=== PATIENT | female | born 1990 | race Caucasian/White ===

== ENCOUNTER 2020-07-29 19:56 | Inpatient (IN) | payer OTHER ==
[~2020-07-29] VITALS: Ht 157.5 cm; Wt 151.0 kg
[2020-07-29 19:59] VITALS: BP 119/71
[2020-07-29] MEDS ORDERED: LEVO-T75 MCG PO (20:31)
[2020-07-29 20:56] LABS: ABSOLUTE NEUTROPHILS 4.3 thou/uL (1.4-8.2); BASOPHILS 0.6 % (0.0-2.0); HEMATOCRIT 37.6 % (37.0-47.0); HEMOGLOBIN 12.4 gm/dL (12.0-15.0); LYMPHOCYTES 22.3 % (24.0-44.0); MCH 25.7 pg (26.0-34.0); MCHC 32.9 g/dL (28.0-37.0); MONOCYTES 8.8 % (1.0-8.0); PLATELET COUNT 208 thou/uL (150-400); POLYS 68.3 % (36.0-66.0); RBC 4.82 mil/uL (4.20-5.00); RDW 16.5 % (10.5-14.5); WBC 6.3 thou/uL (4.0-11.0)
[2020-07-29 21:07] LABS: ANION GAP 10 mmol/L (7-16); BUN 9 mg/dL (7-18); CALCIUM 8.3 mg/dL (8.5-10.1); CHLORIDE 100 mmol/L (98-107); CO2 28 mmol/L (21-32); GLUCOSE 102 mg/dL (74-106); POTASSIUM 3.3 mmol/L (3.5-5.1); SODIUM 138 mmol/L (136-145)
[2020-07-29 21:12] LABS: BE(vivo) -0.6 mmol/L (-2 to +3); HCO3 22.9 mmol/L (22.0-26.0); PCO2 34.1 mmHg (35.0-45.0); pH 7.444 (7.360-7.450); sO2 84.9 % (92.0-98.0)
[2020-07-29 21:18] LABS: ALBUMIN 2.7 g/dL (3.4-5.0); SGOT 55 U/L (15-37); SGPT 60 U/L (30-65); TOTAL BILIRUBIN 0.4 mg/dL (0.2-1.0); TOTAL PROTEIN 7.3 g/dL (6.4-8.2); TROPONIN-I <0.06 ng/mL (<0.06)
[2020-07-29 21:40] LABS: PO2 46.8 mmHg (80.0-100.0)
[2020-07-29 22:14] VITALS: BP 120/69
[2020-07-29 22:19] VITALS: BP 120/69
[2020-07-29 23:25] VITALS: BP 133/75
[2020-07-30] VITALS: BP 122/81
[2020-07-30] MEDS ORDERED: ALBUTEROL2.5 MG/0.5 INH (00:02)
[2020-07-30 04:58] VITALS: BP 107/67
[2020-07-30 06:03] LABS: HEMATOCRIT 41.9 % (37.0-47.0); HEMOGLOBIN 13.5 gm/dL (12.0-15.0); MCH 25.5 pg (26.0-34.0); MCHC 32.2 g/dL (28.0-37.0); MCV 79.3 fL (80.0-100.0); RBC 5.29 mil/uL (4.20-5.00); RDW 16.1 % (10.5-14.5); WBC 5.6 thou/uL (4.0-11.0)
--- NOTE | 2020-07-30 06:48 | NUR ---
PT WAS ADMIT FROM ER. PT WAS PREVIOUSLY TESTED POSITIVE FOR COVID ON 07/27. INITIATED CARE PLAN, INTERVENTIONS IN PLACE, AND MED REC COMPLETED. PT UP AD DALTON. FOLLOWING POC WITH IVF AND IVPB ANTIBIOTICS. REPLACED K+ AND AWAITING RESULTS. CONSULTS HAVE BEEN CALLED IN TO PULMONARY AND ID.
[2020-07-30 06:56] LABS: CALCIUM 8.5 mg/dL (8.5-10.1); CREATININE 0.9 mg/dL (0.6-1.0)
--- NOTE | 2020-07-30 07:12 | EKG ---
[facility] [place] [address] ELECTROCARDIOGRAM REPORT Name: MONET ROMEO Room #: 364-P ADM IN M.R.#: [id number] Admission: 07/29/20 Attend Phys: Jossue Carmona MD Discharge: Date of : 89 Report #: [id number] THIS REPORT FOR: cc: BERTRAND Sanders family physician/PCP BERTRAND - Marilyn family physician/PCP Andrea Lao MD [facility] THIS REPORT FOR: //name// [facility] ED Test Date: 2020-07-29 Test Time: 20:47:04 Pat Name: MONET ROMEO Department: Room: 364 Gender: F Woods Superintendent: YOSEF : 1990 Requested By: Clem Campbell Order Number: [id number] MD: Andrea Lao Measurements Intervals Hilger Rate: 78 P: 13 VA: 132 QRS: -22 QRSD: 138 T: 0 QT: 406 QTc: 463 Interpretive Statements Sinus rhythm Artifact in lead(s) I,II,III,aVR,aVL,aVF,V1,V2,V4 No previous ECG available for comparison Electronically Signed On 07-30-2020 7:11:48 CDT by Andrea Lao [email or web address] <ELECTRONICALLY SIGNED> By: Andrea Lao MD, [facility] 07/30/20710 46 46 Andrea Lao MD, [facility] /EPI
[2020-07-30 07:38] VITALS: BP 116/76
--- NOTE | 2020-07-30 12:47 | NUR ---
INITIAL ASSESSMENT: SW reviewed chart and spoke with nursing and attending physician. Pt was admitted from home due to shortness of breath/acute respiratory failure related to recent dx of COVID-19. Pt is in Enhanced Isolation. Pt has been febrile and is on IV abx. Pt's O2 needs have increased to 4-6L. Pulm and ID consulted. SW placed call to pt's room. No answer. SW left voice message on pt's listed contact number ([phone]). Pt does not have health insurance. [facility]ist to follow up with pt regarding possible Medicaid application/financial assistance. CARLOS is following to assist as needed with discharge planning.
[2020-07-30 15:15] VITALS: BP 117/74
--- NOTE | 2020-07-30 18:38 | NUR ---
PATIENT STARTED ON RAMDISIR THIS PM. SHE IS ALERT ORIENTED X4. UP AD DALTON. DOES NOT SEEM TO BE IN PAIN OF ANY SORT. PLEASANT WITH CARES. MONITORING OXYGEN USAGE AND PULMONARY WANTS TO BE NOTIFIED IF PATIENT IS DECLINING. WILL CONT WITH PLAN OF CARE.
[2020-07-30 21:05] VITALS: BP 126/73
[2020-07-31 03:00] VITALS: BP 113/74
[2020-07-31 03:15] LABS: ABSOLUTE NEUTROPHILS 6.8 thou/uL (1.4-8.2); BASOPHILS 0.1 % (0.0-2.0); HEMATOCRIT 38.1 % (37.0-47.0); HEMOGLOBIN 12.3 gm/dL (12.0-15.0); LYMPHOCYTES 15.7 % (24.0-44.0); MCH 24.9 pg (26.0-34.0); MCHC 32.2 g/dL (28.0-37.0); MCV 77.5 fL (80.0-100.0); MONOCYTES 8.7 % (1.0-8.0); PLATELET COUNT 276 thou/uL (150-400); POLYS 75.5 % (36.0-66.0); RBC 4.92 mil/uL (4.20-5.00); RDW 16.6 % (10.5-14.5)
[2020-07-31 04:02] LABS: INR 1.1; PROTIME 10.8 Seconds (9.3-11.4)
[2020-07-31 04:07] LABS: FIBRINOGEN 510.8 mg/dL (210-360)
[2020-07-31 06:04] LABS: ALBUMIN 2.4 g/dL (3.4-5.0); CALCIUM 8.1 mg/dL (8.5-10.1); CREATININE 0.9 mg/dL (0.6-1.0); POTASSIUM 3.6 mmol/L (3.5-5.1); TOTAL BILIRUBIN 0.2 mg/dL (0.2-1.0); TOTAL PROTEIN 6.8 g/dL (6.4-8.2)
--- NOTE | 2020-07-31 06:36 | NUR ---
Pt. slept well during the night. O2 at 6L/NC with O2 sat in the low to mid 90's. Encouraged pt. to keep oxygen while getting up to the bathroom. MRSA swab and urine sample sent to lab. Instructed to save sputum sample to be sent to lab. Sterile specimen cup provided. Shortness of breath with exertion. SR per tele then sinus tachy with activities. Cont. on enhanced precaution she is afebrile. Positive blood culture called to [facility] . Up ad naty in room with steady gait. Dr. Oc Owens spoke with pt. about convalescent plasma and she gave consent. Explained risk and benefits of blood transfusion and printed material/info given to pt.
[2020-07-31 08:15] VITALS: BP 101/61
[2020-07-31 08:52] VITALS: BP 119/70; BP 123/71
--- NOTE | 2020-07-31 13:36 | NUR ---
SW reviewed chart and spoke with nursing and attending physician. Pt is in Enhanced Isolation due to COVID-19. Pt is afebrile and requiring 6L of O2. Pt is on IV abx and started course of Remdesivir. Pt had convalescent plasma. No weekend discharge planned. CARLOS is following to assist as needed with discharge planning.
[2020-07-31 15:34] VITALS: BP 109/67
--- NOTE | 2020-07-31 17:20 | NUR ---
PATIENT HAS RESTED IN BED THEN CHAIR THROUGH THE DAY. SHE IS ALERT ORIENTED X4. RESPIRATIONS ARE NON LABORED. STABLE AT 6L OF OXYGEN. RECEIVED COVALESCENT PLASMA TODAY. SHE DENIES PAIN. WILL CONT WIT PLAN OF CARE.
[2020-07-31 20:30] VITALS: BP 127/76
[2020-08-01 05:50] LABS: HEMOGLOBIN 12.4 gm/dL (12.0-15.0); MCH 25.6 pg (26.0-34.0); MCHC 32.6 g/dL (28.0-37.0); MCV 78.5 fL (80.0-100.0); RBC 4.84 mil/uL (4.20-5.00); RDW 16.7 % (10.5-14.5); WBC 6.9 thou/uL (4.0-11.0)
[2020-08-01 06:12] LABS: CALCIUM 8.5 mg/dL (8.5-10.1); CREATININE 0.8 mg/dL (0.6-1.0); POTASSIUM 3.6 mmol/L (3.5-5.1)
[2020-08-01 06:19] LABS: ALBUMIN 2.7 g/dL (3.4-5.0); DIRECT BILIRUBIN 0.1 mg/dL (<0.1-0.2); TOTAL BILIRUBIN 0.4 mg/dL (0.2-1.0); TOTAL PROTEIN 7.2 g/dL (6.4-8.2)
--- NOTE | 2020-08-01 06:28 | NUR ---
Pt. stated she slept better last night. Up ad naty in room with steady gait. sputum sample sent to lab. O2 at 6L/NC with O2 sat in the low to mid 90's. She does get short of breath with exertion but stated getting better. Afebrile , cont. on enhanced precaution. Making some progress towards care plan goals.
[2020-08-01 07:43] VITALS: BP 122/71
--- NOTE | 2020-08-01 14:59 | NUR ---
PATIENT CONT TO PROGRESS TOWARDS DISCHARGE GOALS. HER OXYGEN NEEDS HAVE NOT INCREASED OR DECREASE THROUGH THE DAY. ENCOURAGED TO AMBULATE IN ROOM AND REST WHEN TIRED. WILL CONT WITH PLAN OF CARE.
[2020-08-01 15:29] VITALS: BP 138/89
[2020-08-01 21:10] VITALS: BP 125/77
[2020-08-02 05:15] VITALS: BP 132/86
[2020-08-02 05:31] LABS: DIRECT BILIRUBIN 0.2 mg/dL (<0.1-0.2); TOTAL BILIRUBIN 0.4 mg/dL (0.2-1.0); TOTAL PROTEIN 6.7 g/dL (6.4-8.2)
--- NOTE | 2020-08-02 06:14 | NUR ---
Pt. has slept well during the night . Denies any pain. Maintaining O2 sat in the upper 90's on 6L/NC. Verbalized she still gets short of breath with exertion but definitely better, Afebrile. Making progress towards care plan goals.
[2020-08-02 09:33] VITALS: BP 101/55
[2020-08-02 10:59] VITALS: BP 131/65
[2020-08-02 16:37] VITALS: BP 123/82
--- NOTE | 2020-08-02 18:08 | NUR ---
PATIENT PROGRESSING TOWARDS POC GOALS. TITRATED O2 TO 4L/HR. VSS AFEBRILE.
[2020-08-02 19:44] VITALS: BP 132/78
[2020-08-03 03:56] VITALS: BP 124/86
--- NOTE | 2020-08-03 06:06 | NUR ---
Pt. slept well during the night. Verbalized she is now able to cough out phlegm and her breathing has gotten better. Maintaining O2 sat in the mid to upper 90's on 4L/NC. Afebrile. Up ad naty in room with steady gait. Making progress towards care plan goals.
[2020-08-03 06:17] LABS: ALBUMIN 2.6 g/dL (3.4-5.0); DIRECT BILIRUBIN 0.1 mg/dL (<0.1-0.2); TOTAL BILIRUBIN 0.4 mg/dL (0.2-1.0); TOTAL PROTEIN 6.6 g/dL (6.4-8.2)
[2020-08-03 08:06] VITALS: BP 130/81
--- NOTE | 2020-08-03 11:48 | NUR ---
CARLOS reviewed chart and spoke with nursing and attending physician. Pt remains in Enhanced Isolation due to COVID-19. Pt is afebrile and on IV abx. Pt is on 4L of O2. Completing course of Remdesivir. Pt was not on O2 prior to admission. Will need a rest/exercise oximetry ordered to evaluate pt for home O2 needs. Pt does not have health insurance. Discussed with Director of Case Mgmt for need to pay for home O2 at time of discharge if needed. Will use [facility] for home O2. SW notified [facility] liaison of potential new referral. CARLOS is following to assist as needed with discharge planning.
--- NOTE | 2020-08-03 14:23 | NUR ---
Nutrition: Pt assessed due to BMI 60, extreme class 3 obesity. Pt admitted with SOA, COVID + and in enhanced isolation. PMH, hypothyroidism, asthma. Attempted phone call, no answer. Nsg reports pt eating well on regular diet. Currently on 6 Liters 02. On steroid, antibiotics. RD available for diet instruction if pt voices desire for weight loss. Low nutrition risk.
--- NOTE | 2020-08-03 18:07 | NUR ---
PT CONTINUING TO REFUSE TO EAT RENAL DIET. POOR PO INTAKE TODAY. STARTED ON CALORIE COUNT AND DRILL OPERATOR PNEUMATIC AWARE. WILL CONTINUE TO ASSESS.
--- NOTE | 2020-08-03 18:30 | NUR ---
PT COMPLETED COURSE OF RESDEMIVIR TODAY. CONTINUE TO WEAN OXYGEN. PT PROGRESSING TOWARDS GOALS.
[2020-08-03 19:29] VITALS: BP 127/85
[2020-08-04 04:20] VITALS: BP 120/76
--- NOTE | 2020-08-04 06:28 | NUR ---
ASSUMED CARE OF PT AT 1900HRS. PT AOX4 AND LETS NEEDS BE KNOWN. PT IS UP AD DALTON. PT WAS WHEANED FROM 3L TO 1L VIA NC THIS SHIFT. PT DENIES PAIN, NAUSEA OR SOA. PT RUNNING SR ON TELE. PT WAS ABLE TO GET COMFORTABLE AND SLEEP PART OF THE SHIFT. VSS AND NO S/S OF ACUTE DISTRESS. WILL CONTINUE TO MONITOR.
[2020-08-04 07:25] VITALS: BP 117/67
--- NOTE | 2020-08-04 14:04 | NUR ---
CARLOS reviewed chart and spoke with nursing and attending physician. Pt remains in Enhanced Isolation due to COVID-19. Pt is afebrile and on 1L of O2. Pt is on IV abx. Pt has completed course of Remdesivir. Discharge home is anticipated for tomorrow. Medicaid application has been submitted on pt's behalf by [employer]. CARLOS discussed with Director of Case Mgmt. Home O2 can be arranged with [facility] if needed. CARLOS spoke with pt via phone to discuss discharge plan and timeframe. Pt is aware and agreeable with plan. Pt is hoping that she will not need O2 at time of discharge. Pt will have transportation home. CARLOS is following to assist as needed with discharge planning.
[2020-08-04 15:07] VITALS: BP 115/76
--- NOTE | 2020-08-04 15:48 | NUR ---
PT CARE ASSUMED AT 0700, PT ALERT AND ORIENTED X4, DENIES ANY PAIN, NAUSEA AND VOMITTING. PT IS ON 1L OF OXYGEN, NO SIGNS OF DISTRESS NOTED. PT HR UP IN THE 140'S. WHEN UP TO THE BATHROOM. PT IS UP AD DALTON. CALL LGITH AND TABLE WITHIN REACH. WILL CONTINUE TO MONITOR.
[2020-08-04 19:47] VITALS: BP 116/58
--- NOTE | 2020-08-04 21:01 | NUR ---
PT TALKING ON PHONE IN LOUNGE CHAIR. PT AMBULATES INDEPENDENTLY NO SOA WITH EXERTION OR WHEN TALKING. IV ANTIBIOTICS CONTINUE. PT DECLINED SNACK. LUNGS CL DIMINISHED IN BASES, BLE EDEMA.
[2020-08-05 03:16] VITALS: BP 104/63
[2020-08-05 08:03] VITALS: BP 104/61
--- NOTE | 2020-08-05 13:26 | NUR ---
PT CARE ASSUMED AT 0700, PT ALERT AND ORIENTED X4, DENIES ANY PAIN, NAUSEA AND VOMITTING. PT IS ON ROOM AIR, NO SIGNS OF DISTRESS NOTED. PT IS UP IN THE CHAIR MOST OF THE DAY. ASSESSMENT AND VITAL SIGNS COMPLETED. PT WILL POSSIBLE BE GOING HOME TODAY. DENIES ANY NEEDS AT MOMENT. CALL LIGHT AND TABLE WITHIN REACH. EILL CONTINUE TO MONITOR.
--- NOTE | 2020-08-05 14:27 | NUR ---
SW reviewed chart and spoke with nursing and attending physician. Pt is in Enhanced Isolation due to COVID-19. Pt is afebrile and off O2. Pt to have echo today and may discharge home later today. Awaiting final discharge orders. Pt's family to provide transportation home when discharged. Health Resource Guide and prescription discount card on pt's chart to provide to pt at time of discharge. No additional SW needs identified at this time, but is available to assist should needs arise.
[2020-08-05 16:15] VITALS: BP 104/61
--- NOTE | 2020-08-05 16:24 | NUR ---
DR. UNDERWOOD PAGED ABPUT PT GETTING DISCHARGE AND HE IS OKAY WITH D/C, NO FURTHER ORDERS WERE GIVEN.
[2020-08-05 16:41] VITALS: BP 107/75
--- NOTE | 2020-08-05 17:12 | NUR ---
1034 PT DISCHARGE TO HOME, DISCHRGE ORDERS GIVEN TO PT. PT DENIES ANY QUESTIONS. IV TAKEN OUT. PT TAKEN DOWN TO ER FOR A SENIOR LEAD [employer]
== END 2020-08-05 16:52 | disposition home or self-care (01) | DRG 193 ==
LOC: ER 19:56 → EROBS 22:23 → 3W 22:23
PROVIDERS: Internal Medicine Pulmonary Disease; Nurse Practitioner Family; Physician Assistant; Specialist; ADMIT Hospitalist; ATTEND Hospitalist
PROC: XW13325 Transfusion of Convalescent Plasma (Nonautologous) into Peripheral Vein, Percutaneous Approach, New Technology Group 5 (ICD-10-PCS; principal; 2020-07-31)
DX: J18.9 Pneumonia, unspecified organism (principal); J96.01 Acute respiratory failure with hypoxia; R04.2 Hemoptysis; R78.81 Bacteremia; Z68.44 Body mass index [BMI] 60.0-69.9, adult; J45.909 Unspecified asthma, uncomplicated; E03.9 Hypothyroidism, unspecified; Z79.899 Other long term (current) drug therapy; E66.01 Morbid (severe) obesity due to excess calories; B95.7 Other staphylococcus as the cause of diseases classified elsewhere; Z20.828 Contact with and (suspected) exposure to other viral communicable diseases
CPT/HCPCS: 10879